=== PATIENT | male | born 1950 | race Caucasian/White ===

== ENCOUNTER → 2024-10-12 | Outpatient (CLI) | payer MEDICARE ==
[~2024-10-12] MED LIST: AMLO5 PO; ATOR40TA PO; BP MED; HYDCHL25 PO; LISI20 PO; NITR.4SL SL
[2024-10-12 15:07] LABS: BASOPHILS ABSOLUTE AUTO 0.02 K/mm3 (0.00-0.23); BASOPHILS PERCENT AUTO 0 % (0-2); EOSINOPHILS ABSOLUTE AUTO 0.23 K/mm3 (0.00-0.68); EOSINOPHILS PERCENT AUTO 2 % (0-6); Hematocrit 42.0 % (37.0-53.0); Hemoglobin 14.3 g/dL (13.5-17.5); IMMATURE GRAN ABSOLUTE AUTO 0.02 K/mm3 (0.00-0.10); IMMATURE GRAN PERCENT AUTO 0 % (0-1); LYMPHOCYTES ABSOLUTE AUTO 1.92 K/mm3 (0.84-5.20); LYMPHOCYTES PERCENT AUTO 20 % (21-46); MONOCYTES ABSOLUTE AUTO 0.75 K/mm3 (0.16-1.47); MONOCYTES PERCENT AUTO 8 % (4-13); Mean Corpuscular HGB Conc 34.0 g/dL (31.5-36.5); Mean Corpuscular Volume 99 fL (80-100); NEUTROPHILS ABSOLUTE AUTO 6.47 K/mm3 (1.96-9.15); NEUTROPHILS PERCENT AUTO 69 % (41-73); NRBC ABSOLUTE 0.00 K/mm3 (0.00-0.02); NRBC Auto 0.0 /100 WBC (0.0-0.2); Platelet Count 290 K/mm3 (150-400); RDW Coefficient Variation 13.2 % (11.7-14.2); RDW Standard Deviation 48.4 fL (35.1-46.3)
[2024-10-12 15:16] LABS: Alanine Aminotransfer (ALT/SGP 28.0 U/L (12-78); Albumin, Blood 4.2 g/dL (3.4-5.0); Albumin/Globulin Ratio 1.1 (0.8-1.8); Anion Gap 15.0 mmol/L (6-16); Aspartate Aminotrans (AST/SGOT 18.0 U/L (12-37); Bilirubin, Total 0.6 mg/dL (0.1-1.0); Blood Urea Nitrogen 14.0 mg/dL (8-24); CO2, Blood 28.0 mmol/L (21-32); Calcium, Blood 9.7 mg/dL (8.5-10.1); Chloride, Blood 104.0 mmol/L (98-108); Creatinine, Blood 1.18 mg/dL (0.60-1.20); Globulin, Blood 3.8 g/dL (2.2-4.0); Glucose, Blood 86.0 mg/dL (70-99); Magnesium, Blood 2.2 mg/dL (1.6-2.4); Potassium, Blood 3.8 mmol/L (3.5-5.5); Sodium, Blood 143.0 mmol/L (136-145); Total Protein, Blood 8.0 g/dL (6.4-8.2)
== END ==
LOC: LAB SHORT 15:00 → LAB 15:00
PROVIDERS: Chiropractor
DX: I10 Essential (primary) hypertension (principal)
CPT/HCPCS: 80053; 83735; 85025

== ENCOUNTER 2024-12-11 15:24 | Inpatient (IN) | payer MEDICARE ==
[~2024-12-11] VITALS: Ht 170.2 cm; Wt 72.9 kg
[2024-12-11] MEDS ORDERED: Ondansetron HCl 2 MG / ML 2ML Vial IV ONE ×2 (15:45→18:40)
[2024-12-11] MEDS ORDERED: Ketorolac Tromethamine 15mg Vial IV ONE (15:45)
[2024-12-11 16:41] LABS: Source, Urine Clean Catch
[2024-12-11 16:47] LABS: Color, Urine Amber (P-Yellow); Glucose Qualitative, Urine Neg (Neg); Ketones, Urine 2+ (Neg); Leukocyte Esterase, Urine 2+ (Neg); Protein, Urine 2+ (Neg); Specific Gravity, Urine 1.020 (1.003-1.022); Urobilinogen, Urine 2+ (Normal)
[2024-12-11 16:51] LABS: BASOPHILS ABSOLUTE AUTO 0.03 K/mm3 (0.00-0.23); BASOPHILS PERCENT AUTO 0 % (0-2); EOSINOPHILS ABSOLUTE AUTO 0.03 K/mm3 (0.00-0.68); EOSINOPHILS PERCENT AUTO 0 % (0-6); Hematocrit 41.1 % (37.0-53.0); Hemoglobin 14.5 g/dL (13.5-17.5); IMMATURE GRAN ABSOLUTE AUTO 0.03 K/mm3 (0.00-0.10); IMMATURE GRAN PERCENT AUTO 0 % (0-1); LYMPHOCYTES ABSOLUTE AUTO 0.91 K/mm3 (0.84-5.20); LYMPHOCYTES PERCENT AUTO 9 % (21-46); MONOCYTES ABSOLUTE AUTO 0.56 K/mm3 (0.16-1.47); MONOCYTES PERCENT AUTO 6 % (4-13); Mean Corpuscular HGB Conc 35.3 g/dL (31.5-36.5); Mean Corpuscular Volume 100 fL (80-100); NEUTROPHILS ABSOLUTE AUTO 8.20 K/mm3 (1.96-9.15); NEUTROPHILS PERCENT AUTO 84 % (41-73); NRBC ABSOLUTE 0.00 K/mm3 (0.00-0.02); NRBC Auto 0.0 /100 WBC (0.0-0.2); Platelet Count 213 K/mm3 (150-400); RDW Coefficient Variation 14.2 % (11.7-14.2); RDW Standard Deviation 52.9 fL (35.1-46.3)
[2024-12-11 16:59] LABS: Bilirubin, Urine 1+ (Neg)
[2024-12-11 17:08] LABS: Alanine Aminotransfer (ALT/SGP 35.0 U/L (12-78); Albumin, Blood 4.0 g/dL (3.4-5.0); Albumin/Globulin Ratio 1.4 (0.8-1.8); Anion Gap 9.0 mmol/L (3-11); Aspartate Aminotrans (AST/SGOT 31.0 U/L (12-37); Bilirubin, Total 1.3 mg/dL (0.1-1.0); Blood Urea Nitrogen 18.0 mg/dL (8-24); CO2, Blood 28.0 mmol/L (21-32); Calcium, Blood 9.4 mg/dL (8.5-10.1); Chloride, Blood 103.0 mmol/L (98-108); Creatinine, Blood 1.07 mg/dL (0.60-1.20); Globulin, Blood 2.8 g/dL (2.2-4.0); Glucose, Blood 108.0 mg/dL (70-99); Potassium, Blood 4.0 mmol/L (3.5-5.5); Sodium, Blood 136.0 mmol/L (136-145); Total Protein, Blood 6.8 g/dL (6.4-8.2)
[2024-12-11] MEDS ORDERED: Morphine Sulfate 4 MG/1 ML Injection IV ONE (18:40)
[2024-12-11] MEDS ORDERED: HYDROmorphone HCl/Pf 1MG SYR IV ONE (19:25)
[2024-12-11] MEDS ORDERED: NS 1,000 ML IV SCH (19:30)
[2024-12-11] MEDS ORDERED: FentaNYL Citrate 50 MCG/ML 2 ML Injection IV PRN ×3 (19:30→21:25)
[2024-12-11] MEDS ORDERED: Ondansetron HCl 2 MG / ML 2ML Vial IV PRN ×2 (19:30→21:25)
[2024-12-11] MEDS ORDERED: FLU VACC TS2025-26(6MOS UP)/PF 45 MCG/0.5 ML SYRINGE IM SCH (19:30)
[2024-12-11] MEDS ORDERED: Albuterol 2.5 MG/3 ML VIAL INH PRN (19:35)
[2024-12-11] MEDS ORDERED: Labetalol HCL 5 MG/ML 4ML Injection (Single Dose) IV PRN (19:35)
[2024-12-11] MEDS ORDERED: CefTRIAXone Sodium 1,000 MG in NS 100 ML IV SCH (19:38)
[2024-12-11] MEDS ORDERED: FentaNYL Citrate 50 MCG/ML 2 ML Injection ONE ×2 (19:47→20:57)
[2024-12-11] MEDS ORDERED: Bupivacaine 0.5% HCl 5 MG/ML 30MLVIAL ONE (19:54)
[2024-12-11] MEDS ORDERED: Rocuronium Bromide 10 MG/ML 5ML Injection IV ONE (19:56)
[2024-12-11] MEDS ORDERED: Midazolam HCl 1MG / ML 2ML Vial ONE (19:59)
[2024-12-11] MEDS ORDERED: Labetalol HCL 5 MG/ML 4ML Injection (Single Dose) IV ONE (20:00)
[2024-12-11] MEDS ORDERED: FentaNYL Citrate 50 MCG/ML 2 ML Injection IV ONE (20:00)
[2024-12-11] MEDS ORDERED: ePHEDrine Sulfate 50 MG/ML 1ML Injection ONE (20:51)
[2024-12-11] MEDS ORDERED: Lactobacil 2-S.Thermo-Bifido 1 1 Cap PO SCH (21:00)
[2024-12-11] MEDS ORDERED: HYDROmorphone HCl/Pf 1MG SYR IV PRN ×3 (21:25→22:40)
[2024-12-11] MEDS ORDERED: HYDROmorphone HCl/Pf 1MG SYR ONE (21:30)
[2024-12-11] MEDS ORDERED: Dexamethasone Sod Phos 10 MG/ML 1ML VIAL ONE (22:04)
[2024-12-11] MEDS ORDERED: Ondansetron HCl 2 MG / ML 2ML Vial ONE (22:04)
[2024-12-11] MEDS ORDERED: Sugammadex Sodium 200 MG/2ML SDV (100 MG/ML) ONE (22:06)
[2024-12-11] MEDS ORDERED: Phenylephrine HCl 100 MCG/ML-NS 10MLSYR (1MG/10ML) ONE (22:26)
[2024-12-11 22:36] VITALS: BP 205/100
[2024-12-11 22:40] VITALS: BP 196/93
[2024-12-11] MEDS ORDERED: Labetalol HCL 5 MG/ML 4ML Injection (Single Dose) ONE (22:43)
[2024-12-11 22:45] VITALS: BP 187/101
[2024-12-11 22:50] VITALS: BP 143/70
[2024-12-11 23:05] VITALS: BP 127/74
[2024-12-11 23:12] VITALS: BP 131/70
--- NOTE | 2024-12-12 | NUR ---
ARRIVAL TO SURGICAL UNIT ROOM 226 AT 2315. PT A/O X4, ORIENTED TO ROOM, CALL LIGHT, UNIT POLICIES AND PROCEDURES. LAP SITES C/D/I. PT DENIES IGNITION SOURCES ON PERSON. PT IS A CURRENT QD SMOKER AND ETOH DRINKER. PT PLACED ON TELEMETRY AND IS SINUS RORY. PT DENIES PAIN, OR N/V. CONT BIOX PLACED ON PT WELL.
[2024-12-12 00:07] VITALS: BP 169/74
[2024-12-12] MEDS ORDERED: LOSA25 (00:19)
--- NOTE | 2024-12-12 00:45 | NUR ---
TELEMETRY EVENT. CALL RECEIVED FROM TELEMETRY AT 0038. PT'S HEART RATE WAS 37 BPM WITH 1 JUNCTIONAL ESCAPE BEAT. THIS RN DIRECTLY VISUALIZED PT, PT DENIES CHEST PAIN/PRESSURE OR SOB. FORKLIFT SUPERVISOR AWARE.
[2024-12-12 01:07] VITALS: BP 151/71
--- NOTE | 2024-12-12 01:18 | NUR ---
CALL TO HOSPITALIST. CALL PLACED TO HOSPITALIST TO NOTIFY OF PT'S BRADYCARDIA IN 30-40S AND JUNCTIONAL ESCAPE BEATS. PT DENIES SOB, CHEST PAIN OR PRESSURE AND IS A/O X4. EKG ORDER OBTAINED.
[2024-12-12 01:58] VITALS: BP 151/71
--- NOTE | 2024-12-12 02:00 | NUR ---
LATE ENTRY TELEMETRY EVENT. DAYLIGHT SAVING TIME. THIS RN NOTIFIED BY TELEMETRY AT 0150 PT HAD SUSTAINING BRADYCARDIA 39-40BPM AND MULTIPLE ESCAPE BEATS. THIS RN IMMEDIATELY VISUALIZED PT AND PT DENIES SOB OR CHEST PAIN/PRESSURE. HOSPITALIST NOTIFIED AFTER THIS EVENT, HOWEVER TIME CHANGED BACK TO 0100 D/T DAY LIGHT SAVINGS.
[2024-12-12 04:08] VITALS: BP 146/75
[2024-12-12 04:33] LABS: Hematocrit 35.8 % (37.0-53.0); Hemoglobin 12.2 g/dL (13.5-17.5); Mean Corpuscular HGB Conc 34.1 g/dL (31.5-36.5); Mean Corpuscular Volume 101 fL (80-100); NRBC ABSOLUTE 0.00 K/mm3 (0.00-0.02); NRBC Auto 0.0 /100 WBC (0.0-0.2); Platelet Count 172 K/mm3 (150-400); RDW Coefficient Variation 14.4 % (11.7-14.2); RDW Standard Deviation 53.2 fL (35.1-46.3)
[2024-12-12 04:53] LABS: Anion Gap 10.0 mmol/L (3-11); Blood Urea Nitrogen 15.0 mg/dL (8-24); CO2, Blood 25.0 mmol/L (21-32); Calcium, Blood 8.5 mg/dL (8.5-10.1); Chloride, Blood 101.0 mmol/L (98-108); Creatinine, Blood 1.08 mg/dL (0.60-1.20); Glucose, Blood 275.0 mg/dL (70-99); Potassium, Blood 3.8 mmol/L (3.5-5.5); Sodium, Blood 132.0 mmol/L (136-145)
[2024-12-12 07:16] VITALS: BP 168/81
--- NOTE | 2024-12-12 07:21 | NUR ---
SHIFT SUMMARY NOC. PT POD 1 FOR RIGHT INGUINAL HERNIA REPAIR. PT'S LAP SITES C/D/I. PT REPORTS PAIN IS A 2 AND DECLINES NEED FOR PAIN MEDICATION. PT HAVING BRADYCARDIA THIS SHIFT SEE PREVIOUS NOTES. TELEMETRY INTACT. PT VOIDING URINE AND TOLERATING PO INTAKE. BED ALARM SET FOR SAFETY, PT SET OFF ALARM 1X FOR IMPULSIVITY. PT DOES CALL AND MAKES NEEDS KNOWN.
[2024-12-12] MEDS ORDERED: PROBIOTIC ACID1 EAC7 PO (10:23)
[2024-12-12] MEDS ORDERED: CEFP200 PO (10:24)
[2024-12-12] MEDS ORDERED: LISI20 PO (10:25)
--- NOTE | 2024-12-12 10:35 | NUR ---
DISCHARGE EATING, DRINKING, VOIDING [place], & PASSING GAS. DENIES PAIN OR N/V. ABD SOFT w/ LAP SITES WNL. MEDS FAXED TO [facility]. EXCITED FOR DC. DECLINES WC & THIS RN AMBULATES OUT w/ PT. HE WISHES TO WAIT ON HIS OWN & REPORTS HE FEELS SO GOOD HE MAY WALK ACROSS THE STREET FOR SOME FOOD. (VERY STABLE GAIT)
== END 2024-12-12 10:35 | disposition home or self-care (01) | DRG 351 ==
LOC: ER 15:24 → SURS 19:12
PROVIDERS: Nurse Practitioner Acute Care; Student in an Organized Health Care Education/Training Program; Surgery; ADMIT Student in an Organized Health Care Education/Training Program
PROC: 8E0W4CZ Robotic Assisted Procedure of Trunk Region, Percutaneous Endoscopic Approach (ICD-10-PCS; 2024-12-11)
PROC: 0YUA4JZ Supplement Bilateral Inguinal Region with Synthetic Substitute, Percutaneous Endoscopic Approach (ICD-10-PCS; principal; 2024-12-11 19:45)
DX: K40.30 Unilateral inguinal hernia, with obstruction, without gangrene, not specified as recurrent (principal); N39.0 Urinary tract infection, site not specified; I10 Essential (primary) hypertension; I16.0 Hypertensive urgency; K40.90 Unilateral inguinal hernia, without obstruction or gangrene, not specified as recurrent; Z86.79 Personal history of other diseases of the circulatory system; Z88.7 Allergy status to serum and vaccine; Z87.891 Personal history of nicotine dependence
CPT/HCPCS: 36415; 74177; 80048; 80053; 81001; 83690; 85025; 85027; 87086; 93005; 93010; 96374-59; 96375; 96376; 99285-25; A9270; J0696; J1100; J1171; J1885; J2250; J2270; J2371; J2405; J2704; J3010; J7030; Q9967

== ENCOUNTER → 2024-12-21 | Outpatient (CLI) | payer MEDICARE ==
[~2024-12-21] MED LIST changes: +CEFP200 PO; +LOSA25; +PROBIOTIC ACID1 EAC7 PO
[2024-12-21 16:47] LABS: CHOL/HDL RATIO 2.2; Cholesterol 153 mg/dL (50-200); HDL Cholesterol 68 mg/dL (>39); LDL/HDL RATIO 1.0; Low Density Lipoprotein Chol 71 mg/dL (0-110); Thyroid Stimulating Hormone 1.220 uIU/mL (0.360-4.800); Triglycerides 70 mg/dL (30-160); Very Low Density Lipoprot Chol 14 mg/dL (6-32)
== END ==
LOC: LAB 14:54 → LAB SHORT 14:54
PROVIDERS: Family Medicine
DX: Z79.899 Other long term (current) drug therapy (principal)
CPT/HCPCS: 80061; 82306; 83036; 84443